=== PATIENT | male | born 1990 | race Caucasian/White ===

== ENCOUNTER → 2020-03-21 09:41 | Outpatient (CLI) | payer OTHER | END | disposition home or self-care (01) | LOC: D.LAB 09:41 | DX: Z11.59 Encounter for screening for other viral diseases (principal) ==

== ENCOUNTER 2020-12-01 04:47 | Day surgery (SDC) | payer OTHER ==
[~2020-12-01] VITALS: Ht 180.3 cm; Wt 77.1 kg
[2020-12-01 06:07] LABS: CALC OSMOLALITY 281 mosm/kg (275-300); CALCIUM 9.4 mg/dL (8.5-10.1); CARBON DIOXIDE 29.7 mmol/L (21.0-32.0); CHLORIDE - SERUM 104 mmol/L (98-107); GLUCOSE 91 mg/dL (74-106); POTASSIUM - SERUM 3.6 mmol/L (3.5-5.1); SODIUM 141 mmol/L (136-145); UREA NITROGEN 14 mg/dL (7-18); eGFR NON AFRICAN AMERICAN > 90 mL/min (90-120)
[2020-12-01] MEDS ORDERED: NAPROSYN500 MG (06:18)
[2020-12-01 06:20] VITALS: BP 133/81; Ht 180.3 cm; Wt 77.1 kg
[2020-12-01 06:34] LABS: BASOPHILS 0.8 % (0-2); EOSINOPHILS 1.8 % (0-7); HEMATOCRIT 43.3 % (42.0-54.0); HEMOGLOBIN 14.7 g/dL (13.5-17.5); LYMPHOCYTES 36.7 % (15-50); MCH 30.4 pg (26.0-34.0); MCHC 33.9 g/dL (31.0-37.0); MCV 89.6 fL (80.0-100.0); MEAN PLATELET VOLUME 11.6 fL (7.4-10.4); MONOCYTES 7.3 % (2-11); NEUTROPHIL ABS# 2.62 10x3/uL (1.78-5.38); NEUTROPHILS 53.4 % (40-80); PLATELET COUNT 216 10x3/uL (130-400); RBC 4.83 10x6/uL (4.20-6.10); WBC 4.9 10x3/uL (4.8-10.8)
--- NOTE | 2020-12-01 10:24 | NUR ---
PT AWAKENING, OPA REMOVED, DR OSEGUERA AT BEDSIDE
--- NOTE | 2020-12-01 10:29 | HP ---
PATIENT: PURA BAIG MEDICAL RECORD: [id number] ACCOUNT: [id number] LOCATION:[facility] : 89 ADMISSION DATE: 12/01/20 PCP: SHAWN OSEGUERA MD HISTORY AND PHYSICAL EXAMINATION HISTORY OF PRESENT ILLNESS: The patient has a left inguinal hernia. It has been enlarging. It is becoming more symptomatic. I detect no right inguinal hernia. We discussed the pathophysiology of hernias as well as how they can be repaired. The discussion specifically included, but was not limited to, bleeding requiring emergency reoperation, infection, reherniation as well as chronic pain. He states that he has increased pain with bowel movements. SOCIAL HISTORY: Pretty healthy. ALLERGIES: PENICILLIN. MEDICATIONS AT THE DETENTION: Naproxen. PHYSICAL EXAMINATION: GENERAL: The patient does not appear acutely ill. He does not appear chronically ill. VITAL SIGNS: Reviewed. EARS: External ears appear normal. EYES: Extraocular movements are intact. NECK: Trachea is midline. CHEST: No intercostal retractions. PULMONARY: Nonlabored. No stridor. ABDOMEN: Nontender. GENITOURINARY: Left inguinal hernia, which is self reducing. IMPRESSION: Symptomatic left inguinal hernia. PLAN: Open left inguinal hernia repair with mesh. TRANSINT:[id number] Voice Confirmation ID: [id number] DOCUMENT ID: [id number] SHAWN OSEGUERA MD at 1029 CC: [id number] DICTATION DATE: 12/01/2015 FRACTIONATION SUPERVISOR: 12/01/20 0847 [facility] [address] [place] [address]
--- NOTE | 2020-12-01 12:40 | NUR ---
DISCHARGE INSTRUCTIONS PACKET PROVIDED TO ADC GUARD. IV THEN DC'D WITH CATH TIP INTACT. GUARDS ASSISTING PT TO GET DRESSED.
--- NOTE | 2020-12-01 12:51 | NUR ---
DISCHARGED VIA W/C, ACCOMPANIED BY ADC GUARD. ALL BELONGINGS WITH GUARD(S).
--- NOTE | 2020-12-01 16:26 | OP ---
PATIENT NAME: PURA BAIG MEDICAL RECORD: [id number] :89 [facility]: SURGEON: SHAWN OSEGUERA MD DATE OF OPERATION: 12/01/2020 PREOPERATIVE DIAGNOSIS: Symptomatic left inguinal hernia. POSTOPERATIVE DIAGNOSIS: Symptomatic pantaloon left inguinal hernia (indirect and direct components). PROCEDURE PERFORMED: Open left inguinal hernia repair with mesh. SURGEON: Shawn Oseguera MD TRAINING EXECUTIVE: None. BLOOD LOSS: Minimal. ANESTHESIA: General. COMPLICATIONS: None. The risks, possible complications, alternatives of the procedure were explained to the patient. He elects to proceed. OPERATIVE COURSE: The patient was conveyed to the operating room electively on 12/01/2020. General anesthesia was induced by the anesthesia staff. The abdomen and genitals were sterilely prepped and draped. A transverse incision was accomplished in the left groin. Sharp dissection was carried down through the skin and subcutaneous tissues as well as Shara fascia. The external oblique aponeurosis was opened along the direction of its fibers. I bluntly dissected down through the internal oblique and transverse abdominis muscles. A preperitoneal pocket was fashioned bluntly. An indirect hernia was reduced in its entirety. A direct hernia was reduced in its entirety. I opened the hernia sac. There was no sliding component. No incarceration. I then closed the hernia sac. Two ovals of polypropylene were cut out and they were sutured together one on top of the other with a running #1 Surgidac. The mesh was placed in the preperitoneal space. Once I was satisfied with placement of the mesh, I allowed the internal oblique and transverse abdominis muscles to come together. These were sutured together with multiple interrupted horizontal mattress with 0 Surgidacs. I incorporated a portion of the underlying mesh with these sutures. External oblique aponeurosis was closed with a running 0 Vicryls. Shara's fascia was approximated with interrupted 3-0 Vicryl. The subdermis was approximated with interrupted 3-0 Vicryl. The skin was approximated with a running intracuticular 3-0 Vicryl. Benzoin and Steri-Strips were applied. The patient was then extubated and conveyed to post-anesthesia care unit where he was in stable condition. There is no need for him to follow up with me in the office unless he develops a complication related to this operative procedure. Alternatively, we could perform a telehealth visit or I could see him during one of my GI clinic days out at the custodial. My recommendation is that he do no lifting greater than 8 pounds for the next 3 weeks. He is going to be dismissed back to the custodial with Toradol as well as Colace. OPERATIVE REPORT [id number] LORIEJJPURA Bangura TRANSINT:[id number] Voice Confirmation ID: [id number] DOCUMENT ID: [id number] SHAWN OSEGUERA MD at 1626 CC: [id number] DICTATION DATE: 12/01/20 1040 TELECOMMUNICATIONS PROFESSIONAL: 12/01/20 1113 [facility] 12/01/20 [facility] [address] [place] [address]
== END 2020-12-01 12:51 ==
LOC: D.OPS 04:47
PROVIDERS: ATTEND Surgery
DX: K40.90 Unilateral inguinal hernia, without obstruction or gangrene, not specified as recurrent (principal)